=== PATIENT | male | born 1940 | race Caucasian/White ===

== ENCOUNTER 2016-12-04 13:00 | Outpatient (RCR) | payer OTHER | END 2016-12-27 | disposition home or self-care (01) | LOC: PTY 13:00 | DX: M75.121 Complete rotator cuff tear or rupture of right shoulder, not specified as traumatic (principal) | CPT/HCPCS: 97035; 97110; 97140; 97161; G0283 ==

== ENCOUNTER 2017-01-02 15:40 | Outpatient (RCR) | payer OTHER | END 2017-01-27 | disposition home or self-care (01) | LOC: PTY 15:40 | DX: M75.121 Complete rotator cuff tear or rupture of right shoulder, not specified as traumatic (principal) | CPT/HCPCS: 97035; 97110; G0283 ==

== ENCOUNTER 2017-03-17 16:00 | Outpatient (RCR) | payer OTHER | END 2017-03-29 | disposition home or self-care (01) | LOC: PTY 16:00 | DX: S83.241A Other tear of medial meniscus, current injury, right knee, initial encounter (principal); M75.121 Complete rotator cuff tear or rupture of right shoulder, not specified as traumatic; X58.XXXA Exposure to other specified factors, initial encounter; Y93.9 Activity, unspecified; Y92.9 Unspecified place or not applicable ==